=== PATIENT | male | born 1975 | race Caucasian/White ===

== ENCOUNTER 2017-06-17 13:04 | Emergency (ER) | payer OTHER ==
[~2017-06-17] VITALS: Ht 172.7 cm; Wt 80.0 kg
[~2017-06-17 13:04] MED LIST: HYDR-3498 PO; IBUP-1542 PO; IBUP800T25 PO
[2017-06-17 13:06] VITALS: Ht 172.7 cm; Wt 80.0 kg
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
[2017-06-17] MEDS ORDERED: AZIT250T94 PO (14:58)
[2017-06-17] MEDS ORDERED: ASPI-826 PO (15:00)
== END 2017-06-17 15:05 | disposition home or self-care (01) ==
LOC: FTE 13:04
DX: J32.9 Chronic sinusitis, unspecified (principal); F17.210 Nicotine dependence, cigarettes, uncomplicated
CPT/HCPCS: 99283